=== PATIENT | male | born 1955 | race Caucasian/White ===

== ENCOUNTER 2018-08-15 16:45 | Inpatient (IN) | payer BC, OTHER ==
[~2018-08-15] VITALS: Ht 165.1 cm; Wt 95.3 kg
[2018-08-15] MEDS ORDERED: MEPERIDINE HCL (25 MG/ML) 1ML VIAL ONE (17:00)
[2018-08-15] MEDS ORDERED: MEPERIDINE HCL (25 MG/ML) 1ML VIAL IV ONE ×2 (17:00→17:15)
[2018-08-15] MEDS ORDERED: ONDANSETRON HCL 4 MG/2 ML VIAL IV ONE (17:00)
[2018-08-15] MEDS ORDERED: MORPHINE SULFATE 4 MG/ML SYR/VIAL IV ONE (17:00)
[2018-08-15] MEDS ORDERED: ANGIOMAX 250 MG VIAL IV ONE ×2 (17:11→18:10)
[2018-08-15] MEDS ORDERED: ATROPINE SULFATE 1 MG/1 ML VIAL ONE (17:11)
[2018-08-15] MEDS ORDERED: EPINEPHrine HCL 1 MG/10 ML SYRG ONE (17:12)
[2018-08-15] MEDS ORDERED: MIDAZOLAM HCL 1MG/1ML-2 ML VIAL ONE ×2 (17:12→17:41)
[2018-08-15] MEDS ORDERED: fentaNYL CITRATE 100 MCG/2 ML VL ONE (17:12)
[2018-08-15] MEDS ORDERED: SODIUM CHL 0.9% 50 ML ONE ×2 (17:12→18:10)
[2018-08-15] MEDS ORDERED: DOPamine 1600MCG/ML D5W 0 ML IV ONE (17:12)
[2018-08-15] MEDS ORDERED: LIDOCAINE 2%HCL (LOCAL ANESTH.) INJ 20ML MDV ONE ×2 (17:18→17:25)
[2018-08-15] MEDS ORDERED: IOHEXOL 350 MG/ML 100ML IJ ONE (17:18)
[2018-08-15 17:22] LABS: Basophils # (auto) 0.1 uL; Basophils % (auto) 0.7 % (0.0-2.0); Eosinophils # (auto) 0.9 uL; Eosinophils % (auto) 8.2 % (0.0-7.0); Hematocrit 42.2 % (41.0-53.0); Hemoglobin 14.3 g/dL (13.5-17.5); Lymphocytes # (auto) 4.3 uL; Lymphocytes % (auto) 38.6 % (10.0-50.0); Mean Corpuscular Hemoglobin 31.9 pg (28.0-32.0); Mean Corpuscular Hgb Conc. 33.8 g/dL (32.0-36.0); Mean Corpuscular Volume 94.5 fL (80.0-100.0); Monocytes # (auto) 0.9 uL; Neutrophils # (auto) 4.9 uL; Neutrophils % (auto) 44.5 % (37.0-80.0); Nucleated Red Blood Cells % 0.1 %; Platelet Count (auto) 214 10^3/uL (140-450); Red Blood Cells 4.47 10^6/uL (4.5-5.90); Red Cell Distribution Width 13.2 % (11.8-14.3); White Blood Cell 11.1 10^3/uL (4.4-10.8)
[2018-08-15 17:28] LABS: INR 0.97 (0.9-1.15); Partial Thromboplastin Time 24.5 sec (23.78-33.04); Prothrombin Time 10.4 sec (9.27-12.13)
[2018-08-15 17:38] LABS: Albumin 3.9 g/dL (3.4-5.0); Calcium 8.4 mg/dL (8.5-10.1); Magnesium 2.1 mg/dL (1.6-2.6); Potassium 3.6 mmol/L (3.5-5.1)
[2018-08-15] MEDS ORDERED: EPTIFIBATIDE INJ (2MG/ML) 10ML VIAL IV ONE (17:39)
[2018-08-15 17:41] LABS: BUN/Creatinine Ratio 9.5; Bilirubin, Total 0.5 mg/dL (0.2-1.0); Total Protein 7.5 g/dL (6.4-8.2)
[2018-08-15] MEDS ORDERED: CLOPIDOGREL 300 MG TAB ONE (18:10)
[2018-08-15] MEDS ORDERED: DOXA1TAB42 PO (18:56)
[2018-08-15] MEDS ORDERED: LOSA-49 PO (18:56)
[2018-08-15] MEDS ORDERED: RANI-229 PO (18:56)
[2018-08-15] MEDS ORDERED: METF-370 PO (18:56)
[2018-08-15] MEDS ORDERED: LINA5TAB PO (18:56)
[2018-08-15] MEDS ORDERED: SIMV-8 PO (18:56)
[2018-08-15] MEDS ORDERED: OMEP20TA PO (18:56)
[2018-08-15] MEDS ORDERED: ATEN50TA PO (18:56)
[2018-08-15] MEDS ORDERED: AMLO5TAB13 PO (18:56)
[2018-08-15] MEDS ORDERED: NITROGLYCERIN 0.4 MG SL TAB SL PRN (19:00)
[2018-08-15] MEDS ORDERED: ZOLPIDEM TARTRATE 5 MG TAB PO PRN (19:00)
[2018-08-15] MEDS ORDERED: THIAMINE HCL 100 MG TAB PO ONE (19:45)
[2018-08-15] MEDS ORDERED: PROMETHAZINE HCL 25 MG/ML 1ML IV PRN (19:45)
[2018-08-15] MEDS ORDERED: ACETAMINOPHEN 500 MG TAB PO PRN (19:45)
[2018-08-15] MEDS ORDERED: HYDROcodone-ACET 5/325MG TAB PO PRN (19:45)
[2018-08-15] MEDS ORDERED: TEMAZEPAM 15 MG CAP PO PRN (19:45)
[2018-08-15 20:00] VITALS: BP 150/80
[2018-08-15] MEDS ORDERED: chlordiazePOXIDE HCL 25 MG CAP PO PRN (20:00)
--- NOTE | 2018-08-15 20:00 | NUR ---
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 Vitals were taken and a EKG was obtained and placed in the patient's chart. Right groin safe guard pressure dressing was assessed. The patient c/o generalized pain and request pain medication. The patient was educated and informed to stay flat until 2029. The patient verbalized understanding. Addendum: 08/16/18 at 0307 by Manuelito Fletcher RN Per Cath report, EKG was needed to be taken upon admission to med-surg/tele.
[2018-08-15] MEDS: MORPHINE SULFATE 4 MG/ML SYR/VIAL IV PRN (20:37)
--- NOTE | 2018-08-15 20:40 | NUR ---
The patient was given PRN pain medication and 10 cc of air was removed from the pressure dressing.
[2018-08-15 21:00] VITALS: BP 150/80
--- NOTE | 2018-08-15 21:00 | NUR ---
10 cc of air was removed from the pressure dressing.
--- NOTE | 2018-08-15 21:15 | NUR ---
10 cc was removed from the patient's pressure dressing.
--- NOTE | 2018-08-15 21:30 | NUR ---
10 cc of air was removed from the patient's pressure dressing.
[2018-08-15] MEDS: ATORVASTATIN 20 MG TAB PO SCH (21:31)
[2018-08-15] MEDS: ATENOLOL 50 MG TAB PO SCH (21:44)
[2018-08-15] MEDS ORDERED: RANITIDINE HCL 300 MG PO SCH (22:00)
--- NOTE | 2018-08-15 22:30 | NUR ---
The patient's pressure dressing was removed. Clean dressing gauze was placed. No active bleeding at incision site.
[2018-08-16] VITALS (7 sets, daily range): BP systolic 120–140; BP diastolic 65–90
--- NOTE | 2018-08-16 04:00 | NUR ---
Responded to the patient's call light. Upon arrival to the patient's room, he stated that he was having substernal chest pain with a severity of 5/10. Vitals signs were taken and his BP was 120/75. The patient was given 1 tab of nitro per protocol. Reassessed 5 minutes later and the chest pain did not improve. The patient then stated that he does not think the chest pain was cardiac related. He described then stated that his pain is more muscular in nature. [place] was then given to the patient. Will reassess the patient's pain.
[2018-08-16] MEDS: MORPHINE SULFATE 4 MG/ML SYR/VIAL IV PRN ×3 (05:26→23:48)
--- NOTE | 2018-08-16 06:48 | NUR ---
Reassessment The patient states that his pain has improved from 5/10 to 1/10 after receiving the morphine. Will continue to monitor the patient.
--- NOTE | 2018-08-16 07:15 | NUR ---
Opening Shift Note Assumed care of patient, awake and alert. No S/S of distress/SOB or pain at this time. HOB high- oshea's, side-rails up x2, at lowest setting for safety. Campuzano catheter intact,patent and draining clear, yellow urine to gravity. Call light on hand, instructed on POC and to call for assist PRN, will continue to monitor for changes Q1hr and PRN.
[2018-08-16 07:20] LABS: Basophils # (auto) 0 uL; Basophils % (auto) 0.2 % (0.0-2.0); Eosinophils # (auto) 0.1 uL; Hematocrit 36.4 % (41.0-53.0); Hemoglobin 12.8 g/dL (13.5-17.5); Lymphocytes # (auto) 1.9 uL; Lymphocytes % (auto) 15.2 % (10.0-50.0); Mean Corpuscular Hemoglobin 32.5 pg (28.0-32.0); Mean Corpuscular Hgb Conc. 35.2 g/dL (32.0-36.0); Mean Corpuscular Volume 92.4 fL (80.0-100.0); Monocytes % (auto) 8.4 % (0.0-12.0); Neutrophils # (auto) 9.3 uL; Neutrophils % (auto) 75.2 % (37.0-80.0); Platelet Count (auto) 208 10^3/uL (140-450); Red Blood Cells 3.94 10^6/uL (4.5-5.90); Red Cell Distribution Width 13.1 % (11.8-14.3); White Blood Cell 12.3 10^3/uL (4.4-10.8)
[2018-08-16 07:41] LABS: Potassium 3.7 mmol/L (3.5-5.1)
[2018-08-16 08:09] LABS: Albumin 3.5 g/dL (3.4-5.0); BUN/Creatinine Ratio 15.6; Bilirubin, Total 0.6 mg/dL (0.2-1.0); Calcium 8.1 mg/dL (8.5-10.1); Total Protein 6.7 g/dL (6.4-8.2)
[2018-08-16] MEDS: PANTOPRAZOLE 40 MG TAB PO SCH (08:51)
[2018-08-16] MEDS: THIAMINE HCL 100 MG TAB PO SCH (08:51)
[2018-08-16] MEDS: CLOPIDOGREL BISULFATE 75 MG TAB PO SCH (08:51)
[2018-08-16] MEDS: LOSARTAN POTASSIUM 50 MG TAB PO SCH (08:52)
[2018-08-16] MEDS: ATENOLOL 50 MG TAB PO SCH ×2 (08:53→21:18)
[2018-08-16] MEDS: amLODIPine BESYLATE 5 MG TAB PO SCH (08:54)
[2018-08-16] MEDS: ASPirin 81 mg TAB PO SCH (08:56)
[2018-08-16] MEDS: LINAGLIPTIN 5 MG PO SCH (10:00)
[2018-08-16 12:02] LABS: Cholesterol 111 mg/dL (< 200); Triglycerides 103 mg/dL (< 150)
[2018-08-16 12:05] LABS: HDL Cholesterol 34 mg/dL (40-59); LDL Cholesterol 71 mg/dL (< 100)
[2018-08-16] MEDS ORDERED: DEXTROSE (50%) 50ML SYRG IV PRN (12:15)
[2018-08-16] MEDS: ACCU-CHEK COMFORT CURVE STRIP VI SCH ×2 (18:00→23:48)
[2018-08-16] MEDS ORDERED: TAMSULOSIN HYDROCHLORIDE 0.4 MG CAP PO SCH (18:00)
[2018-08-16] MEDS: InsuLIN REG 1unit/0.01ml Soln (100units/ml) SC SCH ×2 (18:16→23:48)
--- NOTE | 2018-08-16 19:30 | NUR ---
OPENING SHIFT NOTE Patient in bed sleeping with eye mask on. Patient's respiration even and unlabored, no non verbal cues to pain noted and observed. Will continue to monitor.
--- NOTE | 2018-08-16 20:00 | NUR ---
Patient awake. Denies pain at this time. Plan of care discussed, patient verbalized understanding. Will continue to monitor.
[2018-08-16] MEDS: LORazepam 0.5 MG TAB PO PRN (20:02)
[2018-08-16] MEDS: ATORVASTATIN 20 MG TAB PO SCH (21:16)
[2018-08-17] MEDS: ACCU-CHEK COMFORT CURVE STRIP VI SCH (06:06)
[2018-08-17] MEDS: InsuLIN REG 1unit/0.01ml Soln (100units/ml) SC SCH (06:06)
[2018-08-17 07:48] VITALS: BP 127/90
[2018-08-17 09:00] VITALS: BP 127/79
[2018-08-17] MEDS: LINAGLIPTIN 5 MG PO SCH (09:16)
[2018-08-17] MEDS: LOSARTAN POTASSIUM 50 MG TAB PO SCH (09:17)
[2018-08-17] MEDS: PANTOPRAZOLE 40 MG TAB PO SCH (09:18)
[2018-08-17] MEDS: ASPirin 81 mg TAB PO SCH (09:18)
[2018-08-17] MEDS: amLODIPine BESYLATE 5 MG TAB PO SCH (09:19)
[2018-08-17] MEDS: CLOPIDOGREL BISULFATE 75 MG TAB PO SCH (09:19)
[2018-08-17] MEDS: ATENOLOL 50 MG TAB PO SCH ×2 (09:20→22:05)
[2018-08-17] MEDS: THIAMINE HCL 100 MG TAB PO SCH (09:20)
--- NOTE | 2018-08-17 11:00 | NUR ---
Called [facility] [phone], notified them of transfer orders. Obtained FAX # [phone] Faxed [facility] pertinent information, awaiting call back.
[2018-08-17] MEDS: LORazepam 0.5 MG TAB PO PRN ×2 (11:34→19:52)
[2018-08-17 13:00] VITALS: BP 116/65
--- NOTE | 2018-08-17 16:38 | NUR ---
SPOKE TO [employer] [facility] [phone], VERBALIZED PATIENT'S TRANSFER IS IN PROGRESS.
[2018-08-17 17:00] VITALS: BP 127/76
--- NOTE | 2018-08-17 19:30 | NUR ---
Opening shift note Patient in bed alert and oriented x 4, verbally coherent, able to make needs known. Patient's respiration even and unlabored. Patient denies pain and discomfort at this time. Plan of care discussed, patient verbalized understanding. spouse at bedside, will continue to monitor.
--- NOTE | 2018-08-17 19:40 | NUR ---
Todd/ Andreas [phone] Received call from [facility], bed available at [facility] transfer thru [facility] Tele unit room 636. ETA between 2045h-2099h Admitting Dr. Raymond Montgomery. Patient made aware and informed.
--- NOTE | 2018-08-17 20:00 | NUR ---
Discontinued Campuzano cath. Patient tolerated procedure with minimal discomfort.
--- NOTE | 2018-08-17 20:10 | NUR ---
POM Not available, pharmacy closed. 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
--- NOTE | 2018-08-17 20:30 | NUR ---
Patient voided moderate amount of clear yellow urine with no sediments or foul odor. Per patient, no pain or discomfort during urination.
--- NOTE | 2018-08-17 21:35 | NUR ---
Todd/ Christine Received call from [facility], due to high volume of emergency transport, ETA changed to 2300H. Patient and spouse made aware and informed.
--- NOTE | 2018-08-17 21:45 | NUR ---
Per spouse, unable to wait for [facility] transport. Spouse went home.
[2018-08-17] MEDS: MORPHINE SULFATE 4 MG/ML SYR/VIAL IV PRN (22:00)
[2018-08-17] MEDS: ATORVASTATIN 20 MG TAB PO SCH (22:02)
--- NOTE | 2018-08-17 23:05 | NUR ---
Transferred patient to [facility] via gurney with 2 [facility] personnel with all belongings. Telebox returned to [facility]. Patient in stable condition. VS 130/74, 71, 18, 98.0 and 96% on RA. Patient's respiration even and unlabored, denies pain and any discomfort. Patient not in any acute distress. Transfer documents signed and copies/ CD provided and handed to [facility] personnel. Patient verbalized appreciation.
== END 2018-08-17 23:05 | disposition short-term general hospital (02) | DRG 247 ==
LOC: EDUNIT# 16:45 → EDBD 16:45 → ER 16:49 → CATH 1 17:34 → EAST 20:07 → TELE-EAST 08-16 03:25
PROVIDERS: ADMIT Internal Medicine; ATTEND Internal Medicine
PROC: 027135Z Dilation of Coronary Artery, Two Arteries with Two Drug-eluting Intraluminal Devices, Percutaneous Approach (ICD-10-PCS; principal; 2018-08-15)
PROC: B2111ZZ Fluoroscopy of Multiple Coronary Arteries using Low Osmolar Contrast (ICD-10-PCS; 2018-08-15)
PROC: 4A033BC Measurement of Arterial Pressure, Coronary, Percutaneous Approach (ICD-10-PCS; 2018-08-15)
DX: I21.3 ST elevation (STEMI) myocardial infarction of unspecified site (principal); I47.2 Ventricular tachycardia; I10 Essential (primary) hypertension; E78.5 Hyperlipidemia, unspecified; I16.0 Hypertensive urgency; E78.00 Pure hypercholesterolemia, unspecified; I48.91 Unspecified atrial fibrillation; E11.9 Type 2 diabetes mellitus without complications; N40.0 Benign prostatic hyperplasia without lower urinary tract symptoms; I25.10 Atherosclerotic heart disease of native coronary artery without angina pectoris; I25.2 Old myocardial infarction; Z82.49 Family history of ischemic heart disease and other diseases of the circulatory system; Z87.891 Personal history of nicotine dependence; Z90.49 Acquired absence of other specified parts of digestive tract
CPT/HCPCS: 36415; 71045; 80053; 80061; 82962; 83036; 83735; 84484; 85025; 85610; 85730; 93005; 93306; 96374; 96375; A6257; C1887; G0378; J0461; J1815; J2250; J2405